=== PATIENT | female | born 1985 | race Caucasian/White ===

== ENCOUNTER 2016-11-20 18:11 | Outpatient (CLI) | payer MEDICAID ==
[~2016-11-20] VITALS: Ht 180.3 cm; Wt 78.0 kg
[~2016-11-20 18:11] MED LIST: DOXY100C2 PO; IBUP-1773 PO; METR500T PO; NAPR-243 PO; PREN1TAB71 PO
[2016-11-20 18:52] VITALS: BP 116/65
[2016-11-20] MEDS ORDERED: FLU TRIvalent (5 YOA+) 2016-17 (AFLURIA) 0.5 ML IM ONE (19:45)
[2016-11-20] MEDS ORDERED: ACETAMINOPHEN 500 MG TAB (TYLENOL) PO PRN (20:15)
[2016-11-20 20:25] VITALS: BP 118/75
[2016-11-20] MEDS ORDERED: CLIN300C11 PO (20:27)
[2016-11-20 20:30] VITALS: BP 118/75
--- NOTE | 2016-11-21 11:07 | Physician Query-Final Dx ---
DAKOTA RUSSO 11/21/16 1107: Clinic Account Progress/Dx Physician Query: Please give diagnosis Date of Service Nov 20, 2016 at 18:11 RUSS LAGUNA MD 11/21/16 1420: Clinic Account Progress/Dx DIAGNOSIS: Diagnosis 28 week gestation Abdominal and vaginal pain Bacterial vaginosis DAKOTA RUSSO Nov 21, 2016 11:07 RUSS LAGUNA MD Nov 21, 2016 14:20
== END 2016-11-20 20:30 | disposition home or self-care (01) ==
LOC: LDRP 18:11 → WSo 18:11
PROVIDERS: ATTEND Family Medicine
DX: O23.592 Infection of other part of genital tract in pregnancy, second trimester (principal); Z3A.28 28 weeks gestation of pregnancy
CPT/HCPCS: 87210; 99214

== ENCOUNTER → 2016-12-09 | Outpatient (CLI) | payer OTHER ==
[~2016-12-09] MED LIST changes: +CLIN300C11 PO; +PREN1TAB86 PO
--- NOTE | 2016-12-09 18:27 | Diagnostic Imaging Report ---
EXAMINATION: OB ultrasound. INDICATION: Late care. COMPARISON: There are no prior studies available for comparison. FINDINGS: There is a single live fetus in cephalic presentation. heart motion was noted, and a rate of 167 BPM was recorded. There are no abnormalities identified. The growth parameters are as follows: BPD: 6.52 cm, 26 weeks 3 days. Head circumference: 26.85 cm, 29 weeks 2 days. Abdominal circumference: 24.21 cm, 28 weeks 4 days. Femur length: 5.74 cm, 30 weeks 1 day. The estimated weight is 1308 grams. The LMP percentile is 2%. The amniotic fluid index was not obtained. The amniotic fluid index may be at the low end of normal. The placenta is anterior, and there is no previa. The cervix was measured and is estimated to be 4.7 cm (normal 3 cm or greater). IMPRESSION: 1. There is a single live fetus of approximately 20 weeks 5 days gestation, +/-2.5 weeks. The EDC is February 26, 2017. 2. There are no abnormalities identified. 3. The growth parameters suggest IUGR. The amniotic fluid volume also seems to be at the low end of normal. A short-term (2-4 week) followup ultrasound exam would be recommended for continued evaluation. 4. These results were discussed with Drs. Jennifer Phillip and Aubree Jones. Dictated by: Dictated on workstation # [id number]
== END ==
LOC: RAD 14:25
PROVIDERS: ATTEND Family Medicine
DX: O09.32 Supervision of pregnancy with insufficient antenatal care, second trimester (principal); Z3A.20 20 weeks gestation of pregnancy
CPT/HCPCS: 76805

== ENCOUNTER → 2016-12-25 | Outpatient (CLI) | payer OTHER ==
--- NOTE | 2016-12-25 16:22 | Diagnostic Imaging Report ---
INDICATION: Followup growth. COMPARISON: 12/09/2016. TECHNIQUE: Grayscale, color Doppler, and M-mode imaging of the gravid uterus was performed. FINDINGS: There is a single live intrauterine with a heart rate of 153 beats per minute. Fetus is cephalic in presentation. The placenta is anterior and there is no evidence of previa. ALEX is normal at 8.3 cm. Average ultrasound age is 30 weeks and 2 days with an estimated date of confinement of 03/03/2017. Estimated gestational age by LMP is 31 weeks and 0 days with an estimated date of confinement of 02/26/2017. The estimated weight is 1539 g (+/-225 g). A anatomy survey is not performed on this limited ultrasound. IMPRESSION: 1. Single live intrauterine with heart rate of 153 beats per minute. 2. Estimated weight is 1539 g. 3. Normal ALEX at 8.3 cm. 4. Average ultrasound age is 30 weeks and 2 days which is within the margin of error compared to the LMP by gestational age of 31 weeks and 0 days. Dictated by: Dictated on workstation # [id number]
== END ==
LOC: RAD 12:40
PROVIDERS: ATTEND Family Medicine
DX: O09.33 Supervision of pregnancy with insufficient antenatal care, third trimester (principal); Z3A.30 30 weeks gestation of pregnancy
CPT/HCPCS: 76816

== ENCOUNTER 2017-01-05 16:46 | Outpatient (CLI) | payer OTHER, MEDICAID ==
[~2017-01-05] VITALS: Ht 180.3 cm; Wt 84.8 kg
[~2017-01-05 16:46] MED LIST changes: -PREN1TAB86 PO
[2017-01-05 16:54] VITALS: BP 119/74
[2017-01-05 17:31] VITALS: BP 118/77
[2017-01-05] MEDS ORDERED: PREN1TAB86 PO (17:32)
[2017-01-05 18:19] VITALS: BP 124/87
--- NOTE | 2017-01-06 16:02 | Physician Query-Final Dx ---
TAMERA GONCALVES 01/06/17 1602: Clinic Account Progress/Dx Physician Query: Please give diagnosis Date of Service Jan 05, 2017 at 16:46 POWER VILLARREAL MD 01/08/17 1515: Clinic Account Progress/Dx DIAGNOSIS: Diagnosis Contractions third trimester TAMERA GONCALVES January 06, 2017 16:02 POWER VILLARREAL MD January 08, 2017 15:15
== END 2017-01-05 18:47 | disposition home or self-care (01) ==
LOC: WSo 16:46 → LDRP 16:46 → WSo 18:47
PROVIDERS: ATTEND Family Medicine
DX: O47.03 False labor before 37 completed weeks of gestation, third trimester (principal); Z3A.32 32 weeks gestation of pregnancy
CPT/HCPCS: 87210; 99214

== ENCOUNTER 2017-01-10 14:14 | Outpatient (CLI) | payer OTHER, MEDICAID ==
[~2017-01-10] VITALS: Ht 180.3 cm; Wt 88.0 kg
[~2017-01-10 14:14] MED LIST changes: +PREN1TAB86 PO
--- NOTE | 2017-01-14 08:16 | Physician Query-Final Dx ---
TAMERA GONCALVES 01/14/17 0816: Clinic Account Progress/Dx Physician Query: Please give diagnosis Date of Service January 10, 2017 at 14:14 RUSS LAGUNA MD 01/22/17 2016: Clinic Account Progress/Dx DIAGNOSIS: Diagnosis 31 weeks gestation Bacterial vaginosis Candidal vaginitis TAMERA GONCALVES January 14, 2017 08:16 RUSS LAGUNA MD January 22, 2017 20:16
== END 2017-01-10 16:05 | disposition home or self-care (01) ==
LOC: WSo 14:14 → LDRP 14:14 → WSo 16:05
PROVIDERS: ATTEND Family Medicine
DX: O23.593 Infection of other part of genital tract in pregnancy, third trimester (principal); B37.3 Candidiasis of vulva and vagina; Z3A.31 31 weeks gestation of pregnancy
CPT/HCPCS: 87210; 99214

== ENCOUNTER → 2017-01-23 | Outpatient (CLI) | payer MEDICAID, OTHER ==
--- NOTE | 2017-01-23 19:08 | Diagnostic Imaging Report ---
INDICATION: Monitor growth and fluid TECHNIQUE: Multiple real-time grayscale images were obtained over the gravid uterus. COMPARISON: None FINDINGS: heart rate is 149 beats per minute. The position is cephalic. The placenta is anterior. No placenta previa. The amniotic fluid index is 8.3 CM. This is similar to previous study of 12/25/16. The growth parameters are: Biparietal diameter: 31 week and 6 days, less than 2nd percentile Head circumference: 34 weeks and 6 days, at the 11th percentile Abdominal circumference: 35 weeks and one day at 56 percentile Femur length: 35 weeks and 0 day, at the 37th percentile These average at: 34 weeks and 2 days. This compares to gestational age of 35 weeks and one day based on DELIA of 02/26/17. IMPRESSION: Amniotic fluid index near the lower limits of normal. The biparietal diameter is below the 2nd percentile, and the head circumference is at the 11th percentile. Dictated by: Dictated on workstation # [id number]
== END ==
LOC: RAD 14:27
PROVIDERS: ATTEND Family Medicine
DX: O09.33 Supervision of pregnancy with insufficient antenatal care, third trimester (principal)
CPT/HCPCS: 76816

== ENCOUNTER 2017-01-24 21:24 | Inpatient (IN) | payer MEDICAID, OTHER ==
[~2017-01-24] VITALS: Ht 180.3 cm; Wt 91.2 kg
[2017-01-24 21:30] VITALS: BP 116/78
[2017-01-24] MEDS ORDERED: D5 LR IV SOLUTION 1,000 ML IV SCH (21:39)
[2017-01-24] MEDS ORDERED: AMPICILLIN INJECTION 2,000 MG in NS (IVPB) 50 ML IV SCH (21:39)
[2017-01-24] MEDS ORDERED: AMPICILLIN 2000 MG INJECTION (IM/IV) ONE (21:41)
[2017-01-24] MEDS ORDERED: NS (IVPB) 50 ML ONE (21:42)
[2017-01-24] MEDS ORDERED: MINERAL OIL CONCENTRATE 99.9% 15 ML UDC TOP PRN (21:45)
[2017-01-24 21:49] LABS: BASOPHILS % (AUTO) 0 % (0-10); EOSINOPHILS % (AUTO) 0 % (0-10); LYMPHOCYTES # (AUTO) 2.3 X 10^3 (1.0-4.0); LYMPHOCYTES % (AUTO) 18 % (12-44); MEAN CORPUSCULAR HEMOGLOBIN 29 PG (25-34); MEAN CORPUSCULAR HGB CONC 32 G/DL (32-36); MEAN CORPUSCULAR VOLUME 89 FL (80-99); MEAN PLATELET VOLUME 10.1 FL (7.4-10.4); MONOCYTES # (AUTO) 1.1 X 10^3 (0.0-1.0); MONOCYTES % (AUTO) 9 % (0-12); NEUTROPHILS # (AUTO) 9.3 X 10^3 (1.8-7.8); NEUTROPHILS % (AUTO) 73 % (42-75); PLATELET COUNT 400 10^3/uL (130-400); RED BLOOD COUNT 3.69 10^6/uL (4.35-5.85); RED CELL DISTRIBUTION WIDTH 13.9 % (10.0-14.5); WHITE BLOOD COUNT 12.7 10^3/uL (4.3-11.0)
[2017-01-24] MEDS ORDERED: CATHETER FLUSH 10 ML SYR IV SCH (22:00)
[2017-01-24] MEDS ORDERED: LIDOCAINE/EPI 1%-1:200,000 (XYLOCAINE) 30 ML VIAL INJ PRN (22:00)
[2017-01-24 22:30] VITALS: BP 115/71
[2017-01-24 23:00] VITALS: BP 109/66
[2017-01-24 23:03] LABS: BILIRUBIN,URINE NEGATIVE (NEGATIVE); KETONES,URINE NEGATIVE (NEGATIVE); LEUKOCYTE ESTERASE ,URINE NEGATIVE (NEGATIVE); NITRITE,URINE NEGATIVE (NEGATIVE); PH,URINE 7 (5-9); PROTEIN,URINE NEGATIVE (NEGATIVE); UROBILINOGEN,URINE NORMAL (NORMAL)
[2017-01-24] MEDS ORDERED: SUFENTA 0.6MCG/ML BUPIVA 0.125 100 ML ONE (23:03)
[2017-01-24 23:16] LABS: SQUAMOUS EPITHELIAL CELL,UR 0-2 /HPF; WBC,URINE RARE /HPF
[2017-01-24 23:30] VITALS: BP 116/68
[2017-01-24] MEDS ORDERED: LACTATED RINGERS 1,000 ML IV ONE (23:36)
[2017-01-24 23:55] VITALS: BP 123/75
[2017-01-25] VITALS (28 sets, daily range): BP systolic 70–124; BP diastolic 40–74
[2017-01-25] MEDS ORDERED: LACTATED RINGERS 1,000 ML IV SCH ×3 (00:32→04:30)
[2017-01-25] MEDS ORDERED: diphenhydrAMINE 50 MG/ML INJ (BENADRYL) IV PRN (00:45)
[2017-01-25] MEDS ORDERED: EPIDURAL (SUFENTA 0.6MCG/ML BUPIVA 0.125%) 100 ML BAG EPI SCH (00:45)
[2017-01-25] MEDS ORDERED: NALOXONE 0.4 MG/ML 1 ML (NARCAN) VIAL IV PRN ×2 (00:45)
[2017-01-25] MEDS ORDERED: METOCLOPRAMIDE INJ 10 MG/2 ML (REGLAN) IV PRN (00:45)
[2017-01-25] MEDS ORDERED: ONDANSETRON 4 MG/2 ML (SDV) Z0FRAN IV PRN (00:45)
[2017-01-25] MEDS ORDERED: OXYTOCIN/NORMAL SALINE 500 ML IV SCH ×3 (01:41→08:47)
[2017-01-25] MEDS ORDERED: AMPICILLIN INJECTION 1,000 MG in NS (IVPB) 50 ML IV SCH (01:45)
[2017-01-25] MEDS: OXYTOCIN/NORMAL SALINE 500 ML IV SCH ×2 (01:45→04:30)
[2017-01-25] MEDS ORDERED: CITRIC ACID/SOB CIT (BICITRA) 30 ML UDC ONE (02:39)
[2017-01-25] MEDS ORDERED: FAMOTIDINE 20MG/2ML IV (PEPCID) ONE (02:40)
[2017-01-25] MEDS ORDERED: metroNIDAZOLE 500MG/100ML IVPB 100 ML ONE (02:41)
[2017-01-25] MEDS ORDERED: ceFAZolin 2 GM/50 ML NS 50 ML ONE (02:42)
[2017-01-25] MEDS ORDERED: ONDANSETRON 4 MG/2 ML (SDV) Z0FRAN ONE (02:46)
[2017-01-25] MEDS ORDERED: OXYTOCIN/NORMAL SALINE 1,000 ML IV ONE (02:46)
[2017-01-25] MEDS ORDERED: LIDOCAINE PF 2% 10 ML (XYLOCAINE) AMP ONE (02:46)
[2017-01-25] MEDS ORDERED: BUPIVACAINE 0.5% 30 ML (SENSORCAINE) VIAL ONE (02:46)
[2017-01-25] MEDS ORDERED: fentaNYL INJECTION 100 MCG/2 ML AMP ONE (02:47)
--- NOTE | 2017-01-25 02:54 | History & Physical-OB ---
OB - Chief Complaint & HPI Date Date of Admission: Date of Admission: January 24, 2017 at 9:59 pm Chief Complaint/History OB-Reason for Admission/Chief: Rupture of Membranes Hx : 3 Hx Para: 2 Expected Date of Delivery: Feb 26, 2017 Gestational Age in Weeks: 35 Gestational Age in Days: 2 Other reason for admission: at 35w2d by 28 week ultrasound with late care, incarcerated during , presented to L&D after having intermittent contractions all day and then 2 gushes of fluid with bleeding just before arrival, with suspected ROM and labor. Found to be 4-5 cm on admission. History of Labs A+, antibody neg, RI, HIV/HepB/RPR NR, GC/Chlamydia neg. GBS pending. Allergies and Home Medications Allergies Coded Allergies: No Known Drug Allergies (Verified , 04/29/07) Home Medications Vit W-Ca,Fe,FA(<1 mg) 1 Each Tablet, 1 EACH PO DAILY, (Reported) OB - History Hx of Present Care: Yes (limited) Ultrasounds: Abnormal US findings (suspected IUGR, US 01/23 with BPD less than 2nd%, difficult to determine given poor dating) Obstetrical Complications: Growth Restriction (suspected) Other Concerns: Incarcerated during Obstetrical History Hx : 3 Hx Para: 2 Hx # Term Pregnancies: 2 Hx # Pregnancies: 0 Number of Living Children: 2 Hx Termination: No Hx Multiple Gestation: No Hx Ectopic : No Hx Stillbirth: No Hx Complication: No Hx Induced Hypertens: No Hx Maternal Gestational Diabet: No Hx Hemorrhage: No Delivery History Hx Dystocia: No Hx Forceps Assisted Delivery: No Hx Vacuum Extraction Assisted: No Hx Placenta Abnormality: No Hx Distress: No Hx Large For Gestational Age I: No Hx Small for Gestational Age I: No Hx Section: No Hx Vaginal Delivery Post C-Sec: No Hx Blood Disorders: No Adverse Rxn to Tranfusion: No Patient Past Medical History Denies PMH/PSH Social History/Family History HIV/AIDS: No Recent Infectious Disease Expo: No Sexually Transmitted Disease: No Alcohol Use: Denies Use Recreational Drug Use: No Smoking Cessation: Former smoker Immunizations Hepatitis A: No Hepatitis B: No Tetanus Booster (TDap): Less than 5yrs Date of Influenza Vaccine: Jun 14, 2015 Rubella: immune RPR/VDRL: Negative GBS Status: Unknown HBsAG: Negative OB - Admission Exam Physical Exam Vitals: Vital Signs 01/24/17 21:30 Temp 99.0 Pulse 111 Resp 18 B/P (MAP) 116/78 Cervical Dilatation: 4cm Effacement: 75% Station: -3 Membranes: Ruptured Heart Rate: 150's Chcf Variability: Minimal (3-5) Contractions on Admission: < 5 Minutes Apart Intensity: Moderate Labs Laboratory Tests Test 01/24/17 21:39 01/24/17 22:50 Range/Units White Blood Count 12.7 H 4.3-11.0 10^3/uL Red Blood Count 3.69 L 4.35-5.85 10^6/uL Hemoglobin 10.6 L 11.5-16.0 G/DL Hematocrit 33 L 35-52 % Mean Corpuscular Volume 89 80-99 FL Mean Corpuscular Hemoglobin 29 25-34 PG Mean Corpuscular Hemoglobin Concent 32 32-36 G/DL Red Cell Distribution Width 13.9 10.0-14.5 % Platelet Count 400 130-400 10^3/uL Mean Platelet Volume 10.1 7.4-10.4 FL Neutrophils (%) (Auto) 73 42-75 % Lymphocytes (%) (Auto) 18 12-44 % Monocytes (%) (Auto) 9 0-12 % Eosinophils (%) (Auto) 0 0-10 % Basophils (%) (Auto) 0 0-10 % Neutrophils # (Auto) 9.3 H 1.8-7.8 X 10^3 Lymphocytes # (Auto) 2.3 1.0-4.0 X 10^3 Monocytes # (Auto) 1.1 H 0.0-1.0 X 10^3 Eosinophils # (Auto) 0.0 0.0-0.3 10^3/uL Basophils # (Auto) 0.0 0.0-0.1 10^3/uL Urine Color YELLOW Urine Clarity CLEAR Urine pH 7 5-9 Urine Specific [place] 1.010 L 1.016-1.022 Urine Protein NEGATIVE NEGATIVE Urine Glucose (UA) NEGATIVE NEGATIVE Urine Ketones NEGATIVE NEGATIVE Urine Nitrite NEGATIVE NEGATIVE Urine Bilirubin NEGATIVE NEGATIVE Urine Urobilinogen NORMAL NORMAL MG/DL Urine Leukocyte Esterase NEGATIVE NEGATIVE Urine RBC (Auto) NEGATIVE NEGATIVE Urine RBC 0-2 /HPF Urine WBC RARE /HPF Urine Squamous Epithelial Cells 0-2 /HPF Urine Crystals NONE /LPF Urine Bacteria NEGATIVE /HPF Urine Casts NONE /LPF Urine Mucus NEGATIVE /LPF Urine Culture Indicated NO Urine Opiates Screen NEGATIVE NEGATIVE Urine Oxycodone Screen NEGATIVE NEGATIVE Urine Methadone Screen NEGATIVE NEGATIVE Urine Propoxyphene Screen NEGATIVE NEGATIVE Urine Barbiturates Screen NEGATIVE NEGATIVE Ur Tricyclic Antidepressants Screen NEGATIVE NEGATIVE Urine Phencyclidine Screen NEGATIVE NEGATIVE Urine Amphetamines Screen NEGATIVE NEGATIVE Urine Methamphetamines Screen NEGATIVE NEGATIVE Urine Benzodiazepines Screen NEGATIVE NEGATIVE Urine Cocaine Screen NEGATIVE NEGATIVE Urine Cannabinoids Screen NEGATIVE NEGATIVE OB - Assessment/Plan/Diagnosis Assessment Assessment: labor, rupture of membranes, vaginal bleeding Plan Other Plan SROM- GBS unknown- ampicillin labor- monitor for cervical change Vaginal bleeding- improving somewhat after admission, but increased to heavy bleeding along with maternal tachycardia and hypotension concerning for partial abruption, consult RUSS Villalobos MD January 25, 2017 2:54 am
--- NOTE | 2017-01-25 03:08 | Progress Note-Pre Operative ---
Pre-Operative Progress Note H&P Reviewed The H&P was reviewed, patient examined and no changes noted. Date H&P Reviewed: January 25, 2017 Time H&P Reviewed: 03:08 Pre-Operative Diagnosis: PPROM/PTL/Abruptio placenta SORIN SHAH MD January 25, 2017 03:08
--- NOTE | 2017-01-25 03:09 | Progress Note-Post Operative ---
Post-Operative Progess Note Surgeon (s)/Bilingual Middle School Teacher (s) Surgeon N/A Bilingual Middle School Teacher: n/a Pre-Operative Diagnosis canceled due to spontaneous vaginal delivery Post-Operative Diagnosis n/a Procedure & Operative Findings Date of Procedure n/a Procedure Performed/Findings n/a Anesthesia Type n/a Estimated Blood Loss Estimated blood loss (mL): n/a Specimens/Packing Specimens Removed n/a Packing: n/a SORIN SHAH MD January 25, 2017 03:09
[2017-01-25] MEDS ORDERED: MEPERIDINE (DEMEROL) INJ 100 MG/ML IM PRN (03:15)
[2017-01-25] MEDS ORDERED: PROMETHAZINE INJ 25 MG/ML (PHENERGAN) AMP IM PRN (03:15)
[2017-01-25] MEDS ORDERED: oxyCODONE/APAP 10/325MG (PERCOCET 10) TABLET PO PRN (03:15)
[2017-01-25] MEDS ORDERED: KETOROLAC 30 MG/ML VIAL IVP SCH (03:15)
[2017-01-25] MEDS ORDERED: TETANUS,DIPTH,PERTUSS P/F (BOOSTRIX) 0.5 ML VIAL IM ONE (03:15)
[2017-01-25] MEDS ORDERED: MEASLES,MUMPS,RUBELLA 1 EA INJ SC ONE (03:15)
[2017-01-25] MEDS ORDERED: D5 LR IV SOLUTION 1,000 ML IV ONE (03:17)
[2017-01-25] MEDS ORDERED: NS IV 500 ML 500 ML ONE (03:22)
[2017-01-25] MEDS ORDERED: MISOPROSTOL 100 MCG (CYTOTEC) TAB ONE (03:33)
--- NOTE | 2017-01-25 04:08 | OB Labor & Delivery Record ---
Vag Delivery Note Vag Delivery Note Date of Delivery: 01/25/17 Preoperative Diagnosis: Franci Olson is a 32 /Para 3 / 2,Gestational Age (wks)35w2d with labor and spontaneous rupture of membranes with large amount of intrapartum bleeding. Postoperative Diagnosis: Same Surgeon: RUSS LAGUNA Anesthesia: Spinal Delivery Type: Spontaneous vaginal Findings: Viable female , apgars 6/8, weight [id number] Lacerations: None Intact placenta with 3 vessel cord. No nuchal cord, body cord or shoulder dystocia Cytotec 800 mcg placed for hemorrhage prophylaxis Estimated Blood Loss: 300 ml at delivery, but estimated 1000 ml prior to complete cervical dilation Complications: Bleeding as noted above Condition: Stable Description of Procedure: The patient is a G3 now P3 who presented with spontaneous rupture of membranes and labor at 35 weeks. She was admitted and informed consent was obtained. Her labor course was remarkable for marked vaginal bleeding- estimated 1000 ml of blood at the time she reached 8 cm dilation. Given the bleeding and her low blood pressure and tachycardia, Dr. Dumont ([employer] Supervisor) was consulted at that time for urgent . Just before , recheck of cervix revealed complete dilation and head at 1+ station with no active bleeding, so decision was made to attempt vaginal delivery. She was then set up for delivery. The infant's head was delivered atraumatically in the MANI position. The shoulders and remainder of the infant's body were then delivered without difficulty. Upon delivery, the head was held below the level of the perineum and the mouth and nares were bulb suctioned. The cord was doubly clamped and cut and the infant was handed off to the pediatric staff. An intact placenta with 3-vessel cord delivered via [place] and there was found to be moderate bleeding.~ Vigorous fundal massage was performed and the fundus was found to be firm. IV oxytocin was given. Examination of the vagina and perineum revealed no lacerations. Mom was stable with no further bleeding but continued to be hypotensive and tachycardic even after administration of neosynephrine and LR bolus in process, so 1 unit PRBCs transfusion begun and stat H&H ordered. Baby was taken to nursery for further evaluation with Dr. Schaefer (Pediatrics). Vitals - Labs Labs Laboratory Tests 01/24/17 21:39: White Blood Count 12.7H, Red Blood Count 3.69L, Hemoglobin 10.6L, Hematocrit 33L , Mean Corpuscular Volume 89, Mean Corpuscular Hemoglobin 29, Mean Corpuscular Hemoglobin Concent 32, Red Cell Distribution Width 13.9, Platelet Count 400, Mean Platelet Volume 10.1, Neutrophils (%) (Auto) 73, Lymphocytes (%) (Auto) 18 , Monocytes (%) (Auto) 9, Eosinophils (%) (Auto) 0, Basophils (%) (Auto) 0, Neutrophils # (Auto) 9.3H, Lymphocytes # (Auto) 2.3, Monocytes # (Auto) 1.1H, Eosinophils # (Auto) 0.0, Basophils # (Auto) 0.0 01/24/17 22:50: Urine Color YELLOW, Urine Clarity CLEAR, Urine pH 7, Urine Specific [place] 1.010L, Urine Protein NEGATIVE, Urine Glucose (UA) NEGATIVE, Urine Ketones NEGATIVE, Urine Nitrite NEGATIVE, Urine Bilirubin NEGATIVE, Urine Urobilinogen NORMAL, Urine Leukocyte Esterase NEGATIVE, Urine RBC (Auto) NEGATIVE, Urine RBC 0-2, Urine WBC RARE, Urine Squamous Epithelial Cells 0-2, Urine Crystals NONE, Urine Bacteria NEGATIVE, Urine Casts NONE, Urine Mucus NEGATIVE, Urine Culture Indicated NO, Urine Opiates Screen NEGATIVE, Urine Oxycodone Screen NEGATIVE, Urine Methadone Screen NEGATIVE, Urine Propoxyphene Screen NEGATIVE, Urine Barbiturates Screen NEGATIVE, Ur Tricyclic Antidepressants Screen NEGATIVE, Urine Phencyclidine Screen NEGATIVE, Urine Amphetamines Screen NEGATIVE, Urine Methamphetamines Screen NEGATIVE, Urine Benzodiazepines Screen NEGATIVE, Urine Cocaine Screen NEGATIVE, Urine Cannabinoids Screen NEGATIVE 01/25/17 03:47: Hemoglobin 8.7L, Hematocrit 27L RUSS LAGUNA MD January 25, 2017 4:08 am
--- NOTE | 2017-01-25 04:14 | Progress Note-Standard ---
Standard Progress Note Progress Notes/Assess & Plan Progress/Assessment & Plan Contacted at approx 0230 for a for possible placental abruption. To patient room. Epidural working well. Plan for with dosed epidural. OR staff in OB OR opening room, 200 mg of 2% Lidocaine given and 100mcg of Fentanyl given via the epidural catheter. 0315 2gm of Ancef given. 0.5% Bupivicaine given incrementally up to a total of 7cc. Prior to moving to OB OR Dr. Jones did a vaginal exam on patient and she was complete with a presenting baby head. The decision to deliver baby vaginally was made. Patient placed on ECG monitoring and BP and pulse ox through OB monitor. Patient needed BP support with phenylephrine given in 100mcg bolus to a total of 800 mcg. The decision to give PRBC's was made by attending physician. Care turned to OB RN's at approx 0345. VIN RAY CRNA January 25, 2017 04:14
[2017-01-25] MEDS ORDERED: PHENYLEPHRINE 100 MCG/ML 10 ML (ANESTHESIA) SYR ONE (04:19)
[2017-01-25] MEDS ORDERED: WITCH HAZEL(TUCKS) 40 EA JAR TOP PRN (09:00)
[2017-01-25] MEDS ORDERED: BENZOCAINE/MENTHOL (DERMOPLAST) 56 ML CAN TP PRN (09:00)
[2017-01-25] MEDS ORDERED: DOCUSATE SODIUM 100 MG (COLACE) CAP PO SCH (09:00)
[2017-01-25 09:07] LABS: RED BLOOD COUNT 2.75 10^6/uL (4.35-5.85); RED CELL DISTRIBUTION WIDTH 13.8 % (10.0-14.5); WHITE BLOOD COUNT 15.6 10^3/uL (4.3-11.0)
[2017-01-25] MEDS: FERROUS SULF 325 MG (IRON) TAB PO SCH (10:57)
[2017-01-25] MEDS: IBUPROFEN 600 MG (MOTRIN) TAB PO SCH ×2 (10:57→17:50)
[2017-01-25] MEDS ORDERED: CATHETER FLUSH 10 ML SYR IV SCH (14:00)
[2017-01-25] MEDS ORDERED: HYDROcodone/APAP 5 MG/325 MG (LORTAB) TAB ONE (22:18)
[2017-01-26] MEDS: IBUPROFEN 600 MG (MOTRIN) TAB PO SCH ×5 (00:06→23:11)
[2017-01-26 00:20] VITALS: BP 131/85
[2017-01-26] MEDS ORDERED: IBUPROFEN 800 MG (MOTRIN) TAB PO SCH (03:15)
[2017-01-26 05:35] LABS: BASOPHILS % (AUTO) 0 % (0-10); EOSINOPHILS # (AUTO) 0.1 10^3/uL (0.0-0.3); EOSINOPHILS % (AUTO) 1 % (0-10); LYMPHOCYTES # (AUTO) 2.8 X 10^3 (1.0-4.0); LYMPHOCYTES % (AUTO) 29 % (12-44); MEAN CORPUSCULAR HEMOGLOBIN 29 PG (25-34); MEAN CORPUSCULAR HGB CONC 32 G/DL (32-36); MEAN CORPUSCULAR VOLUME 91 FL (80-99); MEAN PLATELET VOLUME 9.9 FL (7.4-10.4); MONOCYTES # (AUTO) 0.9 X 10^3 (0.0-1.0); MONOCYTES % (AUTO) 10 % (0-12); NEUTROPHILS % (AUTO) 61 % (42-75); PLATELET COUNT 274 10^3/uL (130-400); RED BLOOD COUNT 2.68 10^6/uL (4.35-5.85); RED CELL DISTRIBUTION WIDTH 14.1 % (10.0-14.5); WHITE BLOOD COUNT 9.9 10^3/uL (4.3-11.0)
[2017-01-26 06:18] VITALS: BP 110/77
[2017-01-26 08:15] VITALS: BP 104/75
[2017-01-26] MEDS: FERROUS SULF 325 MG (IRON) TAB PO SCH (08:21)
[2017-01-26] MEDS: PRENATAL VITAMIN 1 EA TAB PO SCH (08:21)
--- NOTE | 2017-01-26 09:37 | Progress Note (SOAP) ---
Subjective Subjective/Events-last exam Denies concerns, ambulating without dizziness, no chest pain, no shortness of breath, no feeling of palpitations. Bleeding minimal, pain controlled. Mild leg swelling with no leg pain. Date seen by provider: January 26, 2017 Time seen by provider: 09:00 Objective Exam Last Set of Vital Signs Vital Signs Date Time Temp Pulse Resp B/P (MAP) Pulse Ox O2 Delivery O2 Flow Rate FiO2 01/26/17 06:18 96.5 115 110/77 01/26/17 00:20 20 99 Capillary Refill : I&O Intake and Output 01/26/17 00:00 Intake Total 3100 ml Output Total 1515 ml Balance 1585 ml Intake Oral 800 ml IV Total 2300 ml Output Urine Total 1515 ml General: Alert, No Acute Distress Lungs: Clear to Auscultation, Normal Air Movement Heart: Regular Rate, No Murmurs Abdomen: Other (fundus firm below umbilicus, non-tender) Extremities: Other (mild edema bilateral legs) Neuro: Normal Speech Results/Procedures Lab Laboratory Tests 01/26/17 05:30: White Blood Count 9.9, Red Blood Count 2.68L, Hemoglobin 7.8L, Hematocrit 24L, Mean Corpuscular Volume 91, Mean Corpuscular Hemoglobin 29, Mean Corpuscular Hemoglobin Concent 32, Red Cell Distribution Width 14.1, Platelet Count 274, Mean Platelet Volume 9.9, Neutrophils (%) (Auto) 61, Lymphocytes (%) (Auto) 29, Monocytes (%) (Auto) 10, Eosinophils (%) (Auto) 1, Basophils (%) (Auto) 0, Neutrophils # (Auto) 6.0, Lymphocytes # (Auto) 2.8, Monocytes # (Auto) 0.9, Eosinophils # (Auto) 0.1, Basophils # (Auto) 0.0 Assessment/Plan Assessment/Plan Admission Dx ROM labor A+ RI Late care with incarceration during and history of substance abuse Plan ROM/ labor now PPD#1 s/p spontaneous vaginal delivery with suspected partial placental abruption and hemorrhage- received 1 unit PRBCs immediately post- -Hgb 7.8 and remains tachycardia but BP stable, she is asymptomatic, will repeat Hgb tomorrow, continue iron A+ -No need for rhogam RI -no need for MMR Late care with incarceration during and history of substance abuse -Consult socially responsible investment adviser Diagnosis/Problems: Clinical Quality Measures DVT/VTE Risk/Contraindication: Risk Factor Score Per Nursin RFS Level Per Nursing on Admit: 1=Low/No VTE PPX RUSS LAGUNA MD January 26, 2017 09:37
[2017-01-26 12:45] VITALS: BP 116/70
--- NOTE | 2017-01-26 13:38 | Anesthesia-Regional Post-Op ---
Regional Patient Condition Mental Status: Alert, Oriented x3 Circulation: Same as Pre-Op Headache: Absent Sensation: Full Recovery Motor Block: Absent Post Op Complications Complications Back Ache Follow Up Care/Instructions Patient Instructions Informed patient that backache was normal. If not resolving in approx 1 week to please call the anesthesia department for an evaluation. Anesthesia/Patient Condition Patient is doing well, no complaints other than noted above, stable vital signs , no apparent adverse anesthesia problems. No complications reported per nursing. VIN RAY RELEASE AND TECHNICAL RECORDS CLERK January 26, 2017 13:38
[2017-01-26 16:30] VITALS: BP 101/78
[2017-01-26 23:12] VITALS: BP 107/72
[2017-01-26] MEDS: HYDROcodone/APAP 5 MG/325 MG (LORTAB) TAB PO PRN (23:14)
[2017-01-27 05:26] VITALS: BP 108/74
[2017-01-27] MEDS: IBUPROFEN 600 MG (MOTRIN) TAB PO SCH (05:28)
--- NOTE | 2017-01-27 08:37 | Discharge Summary ---
Diagnosis/Chief Complaint Date of Admission January 24, 2017 at 21:59 Date of Discharge January 27, 2017 Admission Diagnosis Admission Diagnosis ROM labor A+ RI Late care with incarceration during and history of substance abuse Discharge Diagnosis ROM labor Partial placental abruption with hemorrhage s/p transfusion of 1 unit prbcs A+ RI Late care with incarceration during and history of substance abuse Chief Complaint/HPI Chief Complaint/HPI 32 yo at 35 weeks gestation presented to Labor and Delivery with spontaneous rupture of membranes and contractions with vaginal bleeding. Dating was poor with first US and visit around 28 weeks. She was incarcerated during her care and released at onset of labor. Discharge Summary-Simple/Stand Procedures Spontaneous vaginal delivery with no lacerations Discharge Physical Examination Allergies: Coded Allergies: No Known Drug Allergies (Verified , 04/29/07) Vitals & I&Os Vital Sign - Last 12Hours Date Time Temp Pulse Resp B/P (MAP) Pulse Ox O2 Delivery O2 Flow Rate FiO2 01/27/17 05:26 98.3 81 18 108/74 95 General Appearance: Alert, No Acute Distress Respiratory: Clear to Auscultation, Normal Air Movement Cardiovascular: Regular Rate, No Murmurs Abdominal: Other (fundus firm below umbilicus) Neuro: Normal Speech Psych/Mental Status: Mental Status NL Hospital Course 32 yo G3 now P3 presented with SROM and labor at 35 weeks by 28 week US. Labor complicated by partial placental abruption with hemorrhage of over 1000 ml, she was prepped for but cervical exam just before going to OR revealed complete dilation and +1 station, so attempt was made for vaginal delivery which was successful. She was hypotensive and tachycardic in spite of phenylephrine administration by Anesthesia and fluid bolus, so 1 unit PRBC transfusion was initiated, after which BP stabilized in 90/70s range. course unremarkable, she denied dizziness, shortness of breath, palpitations, had minimal bleeding and pain. Labs Laboratory Tests Test 01/25/17 09:02 01/26/17 05:30 01/27/17 05:50 Range/Units White Blood Count 15.6 H 9.9 4.3-11.0 10^3/uL Red Blood Count 2.75 L 2.68 L 4.35-5.85 10^6/uL Hemoglobin 8.0 L 7.8 L 7.4 L 11.5-16.0 G/DL Hematocrit 25 L 24 L 23 L 35-52 % Mean Corpuscular Volume 90 91 80-99 FL Mean Corpuscular Hemoglobin 29 29 25-34 PG Mean Corpuscular Hemoglobin Concent 32 32 32-36 G/DL Red Cell Distribution Width 13.8 14.1 10.0-14.5 % Platelet Count 276 274 130-400 10^3/uL Mean Platelet Volume 10.0 9.9 7.4-10.4 FL Neutrophils (%) (Auto) 61 42-75 % Lymphocytes (%) (Auto) 29 12-44 % Monocytes (%) (Auto) 10 0-12 % Eosinophils (%) (Auto) 1 0-10 % Basophils (%) (Auto) 0 0-10 % Neutrophils # (Auto) 6.0 1.8-7.8 X 10^3 Lymphocytes # (Auto) 2.8 1.0-4.0 X 10^3 Monocytes # (Auto) 0.9 0.0-1.0 X 10^3 Eosinophils # (Auto) 0.1 0.0-0.3 10^3/uL Basophils # (Auto) 0.0 0.0-0.1 10^3/uL Discharge Instructions to patient/family Please see electonic discharge instructions given to patient. Discharge Medications Reviewed and agree with Discharge Medication list on patient's Discharge Instruction sheet Clinical Quality Measures DVT/VTE Risk/Contraindication: Risk Factor Score Per Nursin RFS Level Per Nursing on Admit: 1=Low/No VTE PPX Copy Copies To 1: RUSS LAGUNA MD, BETHANY N MD January 27, 2017 08:37
[2017-01-27] MEDS ORDERED: IBUP-1773 PO (08:39)
[2017-01-27] MEDS ORDERED: FERR-74 PO (08:39)
--- NOTE | 2017-01-27 08:41 | Discharge Instructions ---
Discharge Inst-Women's Serv Depart Medications New, Converted or Re-Newed RX: Transmitted to Pharmacy Final Diagnosis spontaneous vaginal delivery Placental abruption anemia New Medications: Ferrous Sulfate (Ferrous Sulfate) 325 Mg Tablet 325 MG PO DAILY, #30 TAB 0 Refills Ibuprofen (Ibuprofen) 600 Mg Tablet 600 MG PO Q6H PRN for PAIN-MILD TO MODERATE, #60 TAB 0 Refills Continued Medications: Vit W-Ca,Fe,FA(<1 mg) ( Vitamins) 1 Each Tablet 1 EACH PO DAILY, TAB Follow Up/Instructions Goal/Follow Up: Follow up with Dr. Jones in 6 weeks for visit. Activity Activity: Activity as Tolerated (avoid strenuous activity x 6 weeks) Driving Instructions: You May Drive NO SMOKING: NO SMOKING Nothing Inside Vagina: No Douching, No [place], No Tampons Diet Discharge Diet: Regular Diet Symptoms to Report to : Swelling Increased, Bleeding Excessive, Fever Over 101 Degrees F, Pain/Pressure in Chest, Heart Beat Irreg/Pounding, Vaginal Bleeding Increase, Cramps in Feet or Legs, Lightheadedness, Vaginal Discharge Foul, Shortness of Breath For Any Problems or Questions: Contact Your Physician Copies To 1: RUSS JONES MD, BETHANY N MD January 27, 2017 08:41
[2017-01-27] MEDS: FERROUS SULF 325 MG (IRON) TAB PO SCH (08:44)
[2017-01-27] MEDS: PRENATAL VITAMIN 1 EA TAB PO SCH (08:44)
[2017-01-27] MEDS: HYDROcodone/APAP 5 MG/325 MG (LORTAB) TAB PO PRN (08:44)
[2017-01-27 08:45] VITALS: BP 107/75
== END 2017-01-27 10:35 | disposition home or self-care (01) | DRG 774 ==
LOC: WSo 21:24 → LDRP 21:24 → WSo 21:37 → LDRP 21:59
PROVIDERS: ADMIT Family Medicine; ATTEND Family Medicine
PROC: 10E0XZZ Delivery of Products of Conception, External Approach (ICD-10-PCS; principal; 2017-01-25)
DX: O42.013 Preterm premature rupture of membranes, onset of labor within 24 hours of rupture, third trimester (principal); O60.14X0 Preterm labor third trimester with preterm delivery third trimester, not applicable or unspecified; O45.93 Premature separation of placenta, unspecified, third trimester; O09.33 Supervision of pregnancy with insufficient antenatal care, third trimester; O99.89 Other specified diseases and conditions complicating pregnancy, childbirth and the puerperium; R00.0 Tachycardia, unspecified; I95.9 Hypotension, unspecified; Z3A.35 35 weeks gestation of pregnancy; Z37.0 Single live birth
CPT/HCPCS: 36415; 80306; 81000; 85014; 85018; 85025; 85027; 86850; 86900; 86901; 86920; 99212

== ENCOUNTER 2019-07-01 13:47 | Emergency (ER) | payer OTHER, MEDICAID ==
[~2019-07-01] VITALS: Ht 180 cm; Wt 81.0 kg
[~2019-07-01 13:47] MED LIST changes: +FERR325T18 PO
[2019-07-01] MEDS ORDERED: NS IV 1000 ML 1,000 ML IV SCH (14:26)
[2019-07-01 14:30] LABS: BASOPHILS % (AUTO) 0 % (0-10); EOSINOPHILS # (AUTO) 0.1 10^3/uL (0.0-0.3); EOSINOPHILS % (AUTO) 1 % (0-10); HEMATOCRIT 38 % (35-52); HEMOGLOBIN 12.2 G/DL (11.5-16.0); LYMPHOCYTES # (AUTO) 2.5 X 10^3 (1.0-4.0); LYMPHOCYTES % (AUTO) 33 % (12-44); MEAN CORPUSCULAR HEMOGLOBIN 28 PG (25-34); MEAN CORPUSCULAR HGB CONC 32 G/DL (32-36); MEAN CORPUSCULAR VOLUME 87 FL (80-99); MEAN PLATELET VOLUME 10.7 FL (7.4-10.4); MONOCYTES # (AUTO) 0.6 X 10^3 (0.0-1.0); MONOCYTES % (AUTO) 8 % (0-12); NEUTROPHILS # (AUTO) 4.4 X 10^3 (1.8-7.8); NEUTROPHILS % (AUTO) 58 % (42-75); PLATELET COUNT 321 10^3/uL (130-400); RED CELL DISTRIBUTION WIDTH 14.8 % (10.0-14.5); WHITE BLOOD COUNT 7.6 10^3/uL (4.3-11.0)
[2019-07-01] MEDS ORDERED: fentaNYL INJECTION 100 MCG/2 ML AMP IVP ONE (14:30)
--- NOTE | 2019-07-01 14:32 | ED GU-Female ---
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 She has a known blighted ovum. She is a at approximately 7-8 weeks with uncertain last menstrual period around and of April. She sees Dr. Coronado for OB care. She had to receive blood transfusions with her last . Plan to come here and get a D&C by Dr. SHARMA. Dr. Coronado called ahead and spoke to the nurse practitioner. She does have some pain in her low pelvis. 78 out of 10. She is also on Keflex in the middle of treatment for a UTI and took her antibiotic this morning. She's not having any significant nausea dysuria diarrhea or constipation. She takes vitamins. Last oral 1200 today. Allergies and Home Medications Allergies Coded Allergies: No Known Drug Allergies (Verified , 04/29/07) Home Medications Ferrous Sulfate 325 Mg Tablet, 325 MG PO DAILY Prescribed by: RUSS LAGUNA on 01/27/17838 Ibuprofen 600 Mg Tablet, 600 MG PO Q6H PRN for PAIN-MILD TO MODERATE Prescribed by: RUSS LAGUNA on 01/27/17 0839 Vit W-Ca,Fe,FA(<1 mg) 1 Each Tablet, 1 EACH PO DAILY, (Reported) Patient Home Medication List Home Medication List Reviewed: Yes Review of Systems Review of Systems Constitutional: No chills, No diaphoresis EENTM: No ear discharge, No ear pain Respiratory: No cough, No hemoptysis Cardiovascular: No chest pain, No edema Gastrointestinal: No constipation, No diarrhea, No dysphagia Genitourinary: see HPI; denies discharge, denies dysuria Past Htskuva-Qcudgn-Cwqgvj Hx Patient Social History Alcohol Use: Occasionally Uses Recreational Drug Use: No Type Used: Cigarettes Former Smoker, Quit: Sep 08, 2016 Recent Foreign Travel: No Contact w/Someone Who Travel: No Recent Infectious Disease Expo: No Physical Abuse: No Sexual Abuse: No Mistreated: No Fear: No Immunizations Up To Date Tetanus Booster (TDap): Less than 5yrs PED Vaccines UTD: Yes Date of Influenza Vaccine: Jun 14, 2015 Past Medical History Surgeries: Yes ([place] Teeth) Respiratory: No Cardiac: No Neurological: No Reproductive Disorders: No Female Reproductive Disorders: Denies Sexually Transmitted Disease: No HIV/AIDS: No Gastrointestinal: No Musculoskeletal: No Endocrine: No Cancer: No Psychosocial: No Integumentary: No Blood Disorders: No Adverse Reaction/Blood Tranf: No Family Medical History Completed stroke 19 FATHER, Onset:50's - 60 19 MOTHER, Onset:40's - 50 Diabetes mellitus 19 MOTHER, Onset:30's - 40 Physical Exam Vital Signs Vital Signs - First Documented 07/01/19 14:03 Temp 35.9 Pulse 77 Resp 18 B/P (MAP) 90/64 (73) Pulse Ox 100 Capillary Refill : Less Than 3 Seconds Height, Weight, BMI Height: 5'11.00" Weight: 201lbs. 0.0oz. [id number]; 25.00 BMI Method:Stated General Appearance: WD/WN, mild distress HEENT: PERRL/EOMI, pharynx normal Cardiovascular: normal peripheral pulses, regular rate, rhythm Respiratory: no respiratory distress, no accessory muscle use Gastrointestinal: non tender, soft Neurologic/Psychiatric: alert, normal mood/affect, oriented x 3 Skin: normal color, warm/dry Progress/Results/Core Measures Suspected Sepsis Recent Fever Within 48 Hours: No Infection Criteria Present: None New/Unexplained Altered Menta: No Sepsis Screen: No Definite Risk SIRS Temperature: Pulse: 77 Respiratory Rate: 18 Laboratory Tests 07/01/19 14:19: White Blood Count 7.6 Blood Pressure 90 /64 Mean: 73 Laboratory Tests 07/01/19 14:19: Creatinine 0.82, Platelet Count 321, Total Bilirubin 0.4 Results/Orders Lab Results Laboratory Tests Test 07/01/19 14:19 Range/Units White Blood Count 7.6 4.3-11.0 10^3/uL Red Blood Count 4.37 4.35-5.85 10^6/uL Hemoglobin 12.2 11.5-16.0 G/DL Hematocrit 38 35-52 % Mean Corpuscular Volume 87 80-99 FL Mean Corpuscular Hemoglobin 28 25-34 PG Mean Corpuscular Hemoglobin Concent 32 32-36 G/DL Red Cell Distribution Width 14.8 H 10.0-14.5 % Platelet Count 321 130-400 10^3/uL Mean Platelet Volume 10.7 H 7.4-10.4 FL Neutrophils (%) (Auto) 58 42-75 % Lymphocytes (%) (Auto) 33 12-44 % Monocytes (%) (Auto) 8 0-12 % Eosinophils (%) (Auto) 1 0-10 % Basophils (%) (Auto) 0 0-10 % Neutrophils # (Auto) 4.4 1.8-7.8 X 10^3 Lymphocytes # (Auto) 2.5 1.0-4.0 X 10^3 Monocytes # (Auto) 0.6 0.0-1.0 X 10^3 Eosinophils # (Auto) 0.1 0.0-0.3 10^3/uL Basophils # (Auto) 0.0 0.0-0.1 10^3/uL Sodium Level 136 135-145 MMOL/L Potassium Level 4.4 3.6-5.0 MMOL/L Chloride Level 103 98-107 MMOL/L Carbon Dioxide Level 25 21-32 MMOL/L Anion Gap 8 5-14 MMOL/L Blood Urea Nitrogen 14 7-18 MG/DL Creatinine 0.82 0.60-1.30 MG/DL Estimat Glomerular Filtration Rate > 60 BUN/Creatinine Ratio 17 Glucose Level 82 70-105 MG/DL Calcium Level 9.1 8.5-10.1 MG/DL Corrected Calcium 9.2 8.5-10.1 MG/DL Total Bilirubin 0.4 0.1-1.0 MG/DL Aspartate Amino Transf (AST/SGOT) 15 5-34 U/L Alanine Aminotransferase (ALT/SGPT) 14 0-55 U/L Alkaline Phosphatase 46 40-136 U/L Total Protein 7.0 6.4-8.2 GM/DL Albumin 3.9 3.2-4.5 GM/DL My Orders Orders - SYLVIA SCANLON Cbc With Automated Diff (07/01/19 14:25) Comprehensive Metabolic Panel (07/01/19 14:25) Fentanyl Injection (Sublimaze Injection (07/01/19 14:30) Ed Iv/Invasive Line Start (07/01/19 14:26) Ns Iv 1000 Ml (Sodium Chloride 0.9%) (07/01/19 14:26) Medications Given in ED Current Medications Medications Dose Ordered Sig/Tao Route Start Time Stop Time Status Last Admin Dose Admin Fentanyl Citrate 50 mcg ONCE ONCE IVP 07/01/19 14:30 07/01/19 14:31 DC 07/01/19 14:35 50 MCG Vital Signs/I&O 07/01/19 14:03 Temp 35.9 Pulse 77 Resp 18 B/P (MAP) 90/64 (73) Pulse Ox 100 Capillary Refill : Less Than 3 Seconds Blood Pressure Mean: 73 Progress Note : Time: 14:29 Progress Note Patient has a soft blood pressure 100/52 with a heart rate in the mid to upper 60s. She is oxygenating well. 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 Departure Communication (Admissions) Time/Spoke to Admitting Phy: 14:55 Discussed case lab, findings with Dr. SHARMA and he would like the patient placed in observation he will see him on the women's floor in about an hour ago. Plan to do a D&C. NPO. Impression Primary Impression: Vaginal bleeding in patient after first trimester Additional Impression: Blighted ovum Disposition: ADMITTED INPATIENT Condition: Stable Admissions Decision to Admit Reason: Admit from ER (General) Decision to Admit/Date: Jul 01, 2019 Time/Decision to Admit Time: 14:54 Departure-Patient Inst. Referrals: RUSS LAGUNA MD (PCP/Family) Primary Care Physician SYLVIA SCANLON Jul 01, 2019 14:32
[2019-07-01 14:42] LABS: ALANINE AMINOTRANSFERASE 14 U/L (0-55); ALBUMIN 3.9 GM/DL (3.2-4.5); ALKALINE PHOSPHATASE 46 U/L (40-136); BILIRUBIN,TOTAL 0.4 MG/DL (0.1-1.0); BUN/CREATININE RATIO 17; CALCIUM 9.1 MG/DL (8.5-10.1); CARBON DIOXIDE 25 MMOL/L (21-32); CHLORIDE 103 MMOL/L (98-107); CREATININE SERUM 0.82 MG/DL (0.60-1.30); GFR ESTIMATED > 60; GLUCOSE 82 MG/DL (70-105); POTASSIUM 4.4 MMOL/L (3.6-5.0); SODIUM 136 MMOL/L (135-145)
[2019-07-01 15:50] VITALS: BP 100/65
[2019-07-01] MEDS ORDERED: LACTATED RINGERS 1,000 ML IV ONE (16:45)
[2019-07-02] MEDS ORDERED: keflex (07:57)
[2019-07-02] MEDS ORDERED: IBUP-1773 PO (08:08)
== END 2019-07-01 15:50 | disposition other institution (70) ==
LOC: EDUNIT# 13:47 → ER 13:49 → UNDOADMOB 14:56 → WS 14:56
DX: O02.0 Blighted ovum and nonhydatidiform mole (principal); Z87.891 Personal history of nicotine dependence
CPT/HCPCS: 36415; 80053; 85025; 96361; 96374

== ENCOUNTER 2019-07-02 07:10 | Day surgery (SDC) | payer OTHER, MEDICAID ==
[~2019-07-02] VITALS: Ht 180 cm; Wt 84.0 kg
[2019-07-02] VITALS (11 sets, daily range): BP systolic 91–112; BP diastolic 58–75
[2019-07-02] MEDS ORDERED: LACTATED RINGERS 1,000 ML IV PRN (07:48)
[2019-07-02] MEDS ORDERED: keflex (07:57)
[2019-07-02 07:58] LABS: HEMOGLOBIN 9.7 G/DL (11.5-16.0); MEAN PLATELET VOLUME 10.6 FL (7.4-10.4); RED CELL DISTRIBUTION WIDTH 14.5 % (10.0-14.5); WHITE BLOOD COUNT 5.3 10^3/uL (4.3-11.0)
[2019-07-02] MEDS ORDERED: LIDOCAINE PF 2% 5 ML (XYLOCAINE) VIAL ONE (08:00)
[2019-07-02] MEDS ORDERED: SEVOFLURANE (ULTANE) 15 ML INHAL SOLN ONE ×2 (08:00→08:47)
[2019-07-02] MEDS ORDERED: proPOfol 200 MG/20 ML (DIPRIVAN) VIAL IV ONE (08:00)
[2019-07-02] MEDS ORDERED: MIDAZOLAM 2 MG/2 ML (VERSED) VIAL ONE (08:01)
[2019-07-02] MEDS ORDERED: D5 LR IV SOLUTION 1,000 ML IV SCH (08:02)
--- NOTE | 2019-07-02 08:02 | History & Physical-Surgical ---
HPO-Surgical History of Present Illness Chief Complaint: Vaginal bleeding Diagnosis/Surgical Indication: Missed AB Procedure: D & C Date of Surgery: Jul 02, 2019 Weight (Pounds): 201 Weight (Ounces): 0.0 Height (Feet): 5 Height (Inches): 11.00 Allergies and Home Medications Allergies Coded Allergies: No Known Drug Allergies (Verified , 04/29/07) Home Medications Vit W-Ca,Fe,FA(<1 mg) 1 Each Tablet, 1 EACH PO DAILY, (Reported) Patient Home Medication List Home Medication List Reviewed: Yes Past Odrgkum-Zeuszx-Fimknr Hx Patient Social History Alcohol Use: Denies Use Recreational Drug Use: No (hx of drug use) Smoking Status: Former Smoker Former Smoker, Quit: May 09, 2019 Type Used: Cigarettes Recent Foreign Travel: No Contact w/other who traveled: No Recent Infectious Disease Expo: No Immunizations Up To Date Tetanus Booster (TDap): Less than 5yrs Pediatric: Yes Date of Influenza Vaccine: Jun 14, 2015 Surgeries Yes ([place] Teeth) Respiratory No Cardiovascular No Neurological No Reproductive System Hx Reproductive Disorders: No Sexually Transmitted Disease: No HIV/AIDS: No Female Reproductive Disorders: Denies Gastrointestinal No Musculoskeletal No Endocrine History of Endocrine Disorders: No Cancer No Psychosocial History of Psychiatric Problem: No Integumentary History of Skin or Integumenta: No Blood Transfusions History of Blood Disorders: No Adverse Reaction to a Blood Tr: No Family Medical History Family Hx: Completed stroke 19 FATHER, Onset:50's - 60 19 MOTHER, Onset:40's - 50 Diabetes mellitus 19 MOTHER, Onset:30's - 40 Exam Vital Signs Vital Signs 07/02/19 07:15 Temp 36.9 Pulse 71 Resp 16 B/P (MAP) 91/62 (72) Pulse Ox 99 O2 Delivery Room Air Capillary Refill : Labs Laboratory Tests Test 07/02/19 07:45 Range/Units White Blood Count 5.3 4.3-11.0 10^3/uL Red Blood Count 3.43 L 4.35-5.85 10^6/uL Hemoglobin 9.7 #L 11.5-16.0 G/DL Hematocrit 30 L 35-52 % Mean Corpuscular Volume 89 80-99 FL Mean Corpuscular Hemoglobin 28 25-34 PG Mean Corpuscular Hemoglobin Concent 32 32-36 G/DL Red Cell Distribution Width 14.5 10.0-14.5 % Platelet Count 243 130-400 10^3/uL Mean Platelet Volume 10.6 H 7.4-10.4 FL General Appearance: Alert, Oriented X3, Cooperative HEENT: PERRLA Respiratory: Clear to Auscultation Cardiovascular: Regular Rate Abdominal: No Tenderness Extremities: No Tenderness/Swelling Skin: No Significant Lesion Neuro: Strength at 5/5 X4 Ext Psych/Mental Status: Mental Status NL Assessment/Plan Assessment and Plan Assessment Incomplete ab P: Suction D and C Admission Diagnosis 34 yo @ 8 weeks Blighted ovum Incomplete ab Admission Status: Other (Same Day Surgery) Reason for Inpatient Admission: Suction d and c BOB SHARMA DO Jul 02, 2019 08:02
[2019-07-02] MEDS ORDERED: fentaNYL INJECTION 100 MCG/2 ML AMP ONE (08:04)
[2019-07-02] MEDS ORDERED: DEXAMETHASONE 10 MG/ML (DECADRON) 1 ML VIAL ONE (08:05)
[2019-07-02] MEDS ORDERED: ONDANSETRON 4 MG/2 ML (SDV) Z0FRAN ONE (08:05)
[2019-07-02] MEDS ORDERED: IBUP-1773 PO (08:08)
--- NOTE | 2019-07-02 08:09 | Discharge Inst-Women's Service ---
Discharge Inst-Women's Serv Depart Medication/Instructions New, Converted or Re-Newed RX: RX on Chart Final Diagnosis PO suction d and c Problems Reviewed?: Yes Consults/Follow Up Additional Follow Up: Yes Orders/Referrals Dr. Sharma in 2-3 weeks Activity Activity: Activity as Tolerated Driving Instructions: No Driving for 1 Week NO SMOKING: NO SMOKING Nothing Inside Vagina: No Douching, No Progress, No Tampons Diet Discharge Diet: No Restrictions Symptoms to Report to : Bleeding Excessive, Pain Increased, Fever Over 101 Degrees F, Vaginal Bleeding Increase, Questions/Concerns For Any Problems or Questions: Contact Your Physician BOB SHARMA DO Jul 02, 2019 08:09
[2019-07-02] MEDS ORDERED: ONDANSETRON 4 MG/2 ML (SDV) Z0FRAN IVP PRN ×2 (08:15→09:15)
[2019-07-02] MEDS ORDERED: KETOROLAC 30 MG/ML VIAL IVP ONE (08:15)
[2019-07-02] MEDS ORDERED: morphine INJ 10 MG/ML 1ML (SYR OR VIAL) IVP ONE (09:15)
--- NOTE | 2019-07-02 09:31 | Anesthesia-General Post-Op ---
General Patient Condition Mental Status/LOC: Same as Preop Cardiovascular: Satisfactory Nausea/Vomiting: Absent Respiratory: Satisfactory Pain: Controlled Complications: Absent Post Op Complications Complications None Follow Up Care/Instructions Patient Instructions None needed. Anesthesia/Patient Condition Patient Condition Patient is doing well, no complaints, stable vital signs, no apparent adverse anesthesia problems. No complications reported per nursing. NAVARRO LYNCH CRNA Jul 02, 2019 09:31
--- NOTE | 2019-07-02 13:56 | OPERATIVE REPORT ---
DATE OF SERVICE: PREOPERATIVE DIAGNOSES: 1. A 34-year-old G4, P3 at approximately 8 weeks' gestation. 2. Blighted ovum. 3. Incomplete . POSTOPERATIVE DIAGNOSES: 1. A 34-year-old G4, P3 at approximately 8 weeks' gestation. 2. Blighted ovum. 3. Incomplete . PROCEDURE: Suction D and C. SURGEON: Bob Sharma DO ANESTHESIA: General endotracheal. ESTIMATED BLOOD LOSS: 250 mL. URINE OUTPUT: 150 mL clear drained at the end of the procedure. FLUIDS: 700 mL lactated Ringer's solution. FINDINGS: A moderate amount of products of conception, grossly normal appearing external female genitalia. SPECIMEN SENT: Products of conception. INDICATIONS FOR PROCEDURE: This 34-year-old patient was incarcerated and sent to the Emergency Department for episode of vaginal bleeding during . Upon evaluation in the Emergency Department, I decided to keep the patient overnight as an observation adamant, however, the [facility] did need her to go back due to staffing issues and requested at the present to be taken back to the [facility] facility. Due to her clinical stability, I was okay with this and send the patient home to be n.p.o. the next morning to proceed with suction D and C. In the preoperative area, I reviewed with the patient the risks and indications. All of her questions were answered, consent was obtained in the preoperative area and the patient was taken to the operating room. OPERATIVE REPORT IN DETAIL: Once in the operating room, anesthesia was found to be adequate, placed in dorsal lithotomy position, prepped and draped in normal sterile fashion. A timeout was performed. Weighted speculum was inserted in the patient's vagina. Right angle retractor was used to visualize the cervix. It was grasped at 12 o'clock position using a long [place]is clamp. I then gently sound the uterine cavity was found to be 8 cm. I selected an 8 cm rigid [place] suction tip advancing into the uterus and applied the [place] suction device. It is activated to a maximum suction of approximately 60 mmHg, at which point I methodically cleared the endometrial cavity of all products of conception on several different passes. This was performed by rotating the curette, after which the sharp gentle curettage was performed using a medium size endometrial curette, after which no active bleeding noted from the cervix. I then removed all the instruments from the patient's vagina. The patient tolerated the procedure well and sent to recovery in stable condition. Lap and sponge counts were correct at the end of the procedure. Instrument counts correct as well. Job ID: [id number] DocumentID: [id number] Dictated Date: 07/02/2019 09:07:34 Cross Tie Cutter Date: 07/02/2019 13:55:25 Dictated By: BOB SHARMA DO
== END 2019-07-02 11:25 | disposition home or self-care (01) ==
LOC: SDC 07:10
PROVIDERS: ATTEND Obstetrics & Gynecology
DX: O03.4 Incomplete spontaneous abortion without complication (principal); O41.8X90 Other specified disorders of amniotic fluid and membranes, unspecified trimester, not applicable or unspecified; O02.0 Blighted ovum and nonhydatidiform mole; Z3A.08 8 weeks gestation of pregnancy; Z87.891 Personal history of nicotine dependence; Z82.3 Family history of stroke; Z83.3 Family history of diabetes mellitus
CPT/HCPCS: 36415; 85027; 86850; 86900; 86901; 87081